=== PATIENT | female | born 1960 | race African-American/Black ===

== ENCOUNTER 2021-04-02 20:04 | Emergency (ER) | payer BC ==
[~2021-04-02] VITALS: Ht 172.7 cm; Wt 79.4 kg
[~2021-04-02 20:04] MED LIST: ESTROGEN PATCH TOP
--- NOTE | 2021-04-02 20:38 | NUR ---
at bedside to do mse.
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
--- NOTE | 2021-04-02 20:46 | NUR ---
Patient does not wish to proceed with medical care recommended by Dr. Danielson. Patient given information related to possible complications, up to and including , which could occur as a result of leaving the hospital at this time. Patient verbalizes understanding of risks involved due to leaving against medical advice. Patient has signed AMA form.
[2021-04-02 22:16] VITALS: BP 159/93
== END 2021-04-02 20:45 | disposition left against medical advice (07) ==
LOC: ER 20:04
DX: R51.9 Headache, unspecified (principal); R11.0 Nausea; I10 Essential (primary) hypertension; V49.40XA Driver injured in collision with unspecified motor vehicles in traffic accident, initial encounter; Y92.410 Unspecified street and highway as the place of occurrence of the external cause
CPT/HCPCS: A4663